=== PATIENT | female | born 1955 | race Caucasian/White ===

== ENCOUNTER 2021-10-26 13:54 | Emergency (ER) | payer OTHER | END 2021-10-26 15:30 | disposition home or self-care (01) | LOC: LB.ED 13:54 | DX: S93.602A Unspecified sprain of left foot, initial encounter (principal); W23.1XXA Caught, crushed, jammed, or pinched between stationary objects, initial encounter | CPT/HCPCS: 73610-LT; 73630-LT; 99281; 99283 ==